=== PATIENT | female | born 1950 | race Hispanic/Latino ===

== ENCOUNTER 2018-02-13 08:28 | Outpatient (CLI) | payer MEDICARE, OTHER ==
--- NOTE | 2018-02-13 09:20 | XRay Report ---
LEFT KNEE RADIOGRAPHS INDICATION: Left knee pain. COMPARISON: None similar at this institution. FINDINGS: Standing AP, lateral, tunnel and sunrise views of the left knee demonstrate osteopenia/osteoporosis. Diffuse degenerative spurring, most involving the lateral tibial plateau. Preserved articulation. No suprapatellar effusion. CONCLUSION: Left knee osteoarthrosis and bony demineralization, as described. Thank you for the opportunity to participate in this patient's care.
== END 2018-02-13 08:29 | disposition home or self-care (01) ==
LOC: SPVIMAG 08:28
PROVIDERS: ATTEND Orthopaedic Surgery
DX: M17.12 Unilateral primary osteoarthritis, left knee (principal); M25.862 Other specified joint disorders, left knee